=== PATIENT | female | born 1960 | race Caucasian/White ===

== ENCOUNTER 2023-08-08 18:11 | Emergency (ER) | payer BC ==
[~2023-08-08] VITALS: Ht 154.9 cm; Wt 72.7 kg
[2023-08-08 18:17] VITALS: BP 110/53; O2SAT 98
[2023-08-08] MEDS ORDERED: DEXTROSE 50% 50ML SYRINGE As Ordered ONE (18:17)
[2023-08-08] MEDS ORDERED: PANT40TA29 PO (18:26)
[2023-08-08] MEDS ORDERED: ROSU10TA61 PO (18:26)
[2023-08-08] MEDS ORDERED: OXYC10TA12 PO (18:31)
[2023-08-08] MEDS ORDERED: TIZA2TA PO (18:31)
[2023-08-08] MEDS ORDERED: GABA-282 PO (18:31)
[2023-08-08] MEDS ORDERED: CHOL12508 PO (18:31)
[2023-08-08] MEDS ORDERED: SERO1TAB3 PO (18:31)
[2023-08-08] MEDS ORDERED: FAMO20TA PO (18:38)
[2023-08-08] MEDS ORDERED: IBUP200C89 PO (18:38)
[2023-08-08] MEDS ORDERED: ONDA-282 PO (18:38)
[2023-08-08] MEDS ORDERED: IBAN150T6 PO (18:38)
[2023-08-08] MEDS ORDERED: LORA1TAB23 PO (18:38)
[2023-08-08] MEDS ORDERED: HYDR-3363 PO (18:38)
[2023-08-08 18:41] VITALS: TEMP 97.5
[2023-08-08] MEDS: DEXTROSE 50% 50ML SYRINGE IV STA (18:44)
[2023-08-08 20:42] LABS: BASO # 0.1 10^3/uL (0.0-0.2); BASO % 0.7 % (0.0-1.0); EOS % 0.2 % (0.0-3.0); HEMATOCRIT 34.7 % (36.0-47.0); HEMOGLOBIN 11.7 g/dl (12.0-15.5); LYMPH # 0.8 10^3/uL (1.5-5.0); LYMPH % 9.7 % (24.0-44.0); MEAN CORPUSCULAR HEMOGLOBIN 31.1 pg (27.0-33.0); MEAN CORPUSCULAR HGB CONC 33.7 g/dl (32.0-36.5); MEAN CORPUSCULAR VOLUME 92.3 fl (80.0-96.0); MONO # 0.7 10^3/uL (0.0-0.8); MONO % 8.8 % (2.0-8.0); NEUTROPHILS # 6.7 10^3/uL (1.5-8.5); PLATELET COUNT, AUTOMATED 241 10^3/uL (150-450); RED BLOOD COUNT 3.76 10^6/uL (4.00-5.40); WHITE BLOOD COUNT 8.4 10^3/uL (4.0-10.0)
[2023-08-08 21:10] LABS: LIPASE 22 U/L (12-53)
[2023-08-08 21:12] LABS: ALBUMIN 3.7 G/DL (3.2-5.2); ALKALINE PHOSPHATASE 77 U/L (46-116); ALT/SGPT 11 U/L (7.0-40); AST/SGOT 10 U/L (<34); BILIRUBIN,DIRECT 0.1 MG/DL (<0.4); BILIRUBIN,TOTAL 0.3 MG/DL (0.3-1.2); BLOOD UREA NITROGEN 7 MG/DL (9-23); CALCIUM LEVEL 8.6 MG/DL (8.3-10.6); CARBON DIOXIDE LEVEL 26 MMOL/L (20-31); CHLORIDE LEVEL 104 MMOL/L (98-107); CREATININE FOR GFR 0.78 MG/DL (0.55-1.30); GLOMERULAR FILTRATION RATE > 60.0 (>45); GLUCOSE, FASTING 92 MG/DL (74-106); POTASSIUM SERUM 4.2 MMOL/L (3.5-5.1); SODIUM LEVEL 135 MMOL/L (136-145)
== END 2023-08-09 | disposition home or self-care (01) ==
LOC: EDBD 18:11 → M ED 18:11
DX: E16.2 Hypoglycemia, unspecified (principal); R56.9 Unspecified convulsions; K21.9 Gastro-esophageal reflux disease without esophagitis; E78.5 Hyperlipidemia, unspecified; Z98.84 Bariatric surgery status; F17.290 Nicotine dependence, other tobacco product, uncomplicated; Z88.0 Allergy status to penicillin; Z88.8 Allergy status to other drugs, medicaments and biological substances